=== PATIENT | male | born 1960 | race Caucasian/White ===

== ENCOUNTER → 2017-10-09 13:46 | Outpatient (CLI) | payer BC | END | disposition home or self-care (01) | LOC: D.CT 13:46 | DX: K74.60 Unspecified cirrhosis of liver (principal); N28.1 Cyst of kidney, acquired ==

== ENCOUNTER 2018-02-28 06:57 | Outpatient (CLI) | payer BC ==
[~2018-02-28] VITALS: Ht 200.7 cm; Wt 120.5 kg
[2018-02-28] MEDS ORDERED: CARAFATE1 G (07:32)
[2018-02-28] MEDS ORDERED: PROTONIX40 MG PO (07:33)
[2018-02-28] MEDS ORDERED: VIBRAMYCIN 100100 MG PO (07:34)
[2018-02-28] MEDS ORDERED: FLAGYL250 MG PO (07:34)
[2018-02-28 07:38] VITALS: BP 131/86; Ht 200.7 cm; Wt 120.5 kg
[2018-02-28 08:10] LABS: BASOPHILS 0.2 % (0-2); EOSINOPHILS 2.1 % (0-7); HEMATOCRIT 42.8 % (42.0-54.0); HEMOGLOBIN 14.7 g/dL (13.5-17.5); IMMATURE GRANULOCYTES 0.2 % (0-5); LYMPHOCYTES 34.6 % (15-50); MCH 31.7 pg (26.0-34.0); MCHC 34.3 g/dL (31.0-37.0); MCV 92.2 fL (80.0-100.0); MONOCYTES 7.7 % (2-11); NEUTROPHILS 55.2 % (40-80); PLATELET COUNT 129 10x3/uL (130-400); RBC 4.64 10x6/uL (4.20-6.10); RDW 13.6 % (11.5-14.5); WBC 5.7 10x3/uL (4.8-10.8)
[2018-02-28 08:21] LABS: CALC OSMOLALITY 278 mosm/kg (275-300); CALCIUM 8.1 mg/dL (8.5-10.1); CARBON DIOXIDE 26.2 mmol/L (21.0-32.0); CHLORIDE - SERUM 103 mmol/L (98-107); CREATININE - SERUM 0.9 mg/dL (0.6-1.3); GLUCOSE 133 mg/dL (74-106); INR 1.07 (0.85-1.17); POTASSIUM - SERUM 4.5 mmol/L (3.5-5.1); PROTIME 13.5 SECONDS (11.6-15.0); SODIUM 138 mmol/L (136-145); UREA NITROGEN 15 mg/dL (7-18); eGFR NON AFRICAN AMERICAN > 90 mL/min (90-120)
[2018-02-28 08:22] LABS: APTT 27.2 SECONDS (22.8-39.4)
== END 2018-02-28 13:33 | disposition home or self-care (01) ==
LOC: D.SP 06:57
PROVIDERS: Specialist
DX: K74.60 Unspecified cirrhosis of liver (principal); B19.20 Unspecified viral hepatitis C without hepatic coma

== ENCOUNTER → 2018-09-02 06:58 | Outpatient (CLI) | payer BC ==
[2018-02-28 07:38] VITALS: BMI 29.9
[~2018-09-02 06:58] MED LIST: CARAFATE1 G; FLAGYL250 MG PO; PROTONIX40 MG PO; VIBRAMYCIN 100100 MG PO
[2018-09-02 07:41] LABS: BASOPHILS 0.2 % (0-2); EOSINOPHILS 2.4 % (0-7); HEMATOCRIT 42.4 % (42.0-54.0); HEMOGLOBIN 14.7 g/dL (13.5-17.5); IMMATURE GRANULOCYTES 0.6 % (0-5); LYMPHOCYTES 34.5 % (15-50); MCHC 34.7 g/dL (31.0-37.0); MCV 92.2 fL (80.0-100.0); MEAN PLATELET VOLUME 11.3 fL (7.4-10.4); NEUTROPHILS 57.3 % (40-80); PLATELET COUNT 119 10x3/uL (130-400); RDW 13.7 % (11.5-14.5)
[2018-09-02 07:55] LABS: ALBUMIN 3.5 g/dL (3.4-5.0); BILIRUBIN - DIRECT 0.07 mg/dL (0.00-0.30); BILIRUBIN - INDIRECT 0.51 mg/dL (0.00-1.00); BILIRUBIN - TOTAL 0.58 mg/dL (0.2-1.3); PROTEIN - SERUM 7.7 g/dL (6.4-8.2)
[2018-09-02 08:12] LABS: INR 1.03 (0.85-1.17); PROTIME 13.1 SECONDS (11.6-15.0)
[2018-09-04 11:55] LABS: CHOL - HDL RATIO 8.5 ratio (2.3-4.9); CHOLESTEROL, TOTAL 161 mg/dL (0-200); HDL CHOLESTEROL 19 mg/dL (32-96); TRIGLYCERIDE 710 mg/dL (30-200)
== END | disposition home or self-care (01) ==
LOC: D.US 09-01 09:00
PROVIDERS: Internal Medicine Gastroenterology
DX: K74.60 Unspecified cirrhosis of liver (principal)